=== PATIENT | female | born 1960 | race Hispanic/Latino ===

== ENCOUNTER 2023-02-11 14:43 | Outpatient (CLI) | payer OTHER, SELFPAY ==
--- NOTE | 2023-02-11 14:52 | ECHO_ITS ---
Patient Info Name: PETEY GRUBBS Age: 62 years : 1960 Gender: Female Ht: 62 in Wt: 225 lbs BSA: 2.17 m2 HR: 82 bpm BP: 156 / 85 mmHg Heart Rhythm: Sinus Rhythm Technical Quality: Good Exam Date: 02/11/2023 2:57 PM Exam Location: [facility] Patient Status: Outpatient Admit Date: 02/11/2023 Staff Ordering Physician: Derek Dubose DO Weight Engineer: Jarod Bonilla RDCS Attending Provider: Derek Dubose DO Referring Physician: Sedrick HOOPER; Exam Type: CA echo doppler color flow Study Info Indications - essential Hypertension Complete two-dimensional, color flow and Doppler transthoracic echocardiogram is performed. Summary 1. Complete two-dimensional, color flow and Doppler transthoracic echocardiogram is performed. 2. Left ventricular chamber dimension is normal. 3. Left ventricular systolic function is normal, estimated at 60-65%. 4. There is mild concentric increased left ventricular wall thickness. 5. The left ventricular diastolic function is grade I diastolic dysfunction. 6. E/e' 9 is minimally elevated. 7. Left atrial chamber dimension is mildly enlarged. 8. There is moderate aortic valve sclerosis. 9. There is mild aortic valve stenosis with a peak velocity of 233 cm/s, mean gradient of 14 mmHg, and aortic valve area of 1.8 cm2. 10. There is mild aortic valve regurgitation. 11. The mitral valve has mildly calcified annulus. 12. There is trace mitral valve regurgitation. 13. No pulmonary hypertension, estimated pulmonary arterial systolic pressure is 21 mmHg. 14. The aortic root size at the sinus of Valsalva is borderline dilated at 4.0 cm. Left Ventricle E/e' 9 is minimally elevated. Left ventricular chamber dimension is normal. Left ventricular systolic function is normal, estimated at 60-65%. There is mild concentric increased left ventricular wall thickness. The left ventricular diastolic function is grade I diastolic dysfunction. Right Ventricle Right ventricular systolic function is normal and with normal TAPSE 2.5 cm. Right ventricular chamber dimension is normal. Left Atria Left atrial chamber dimension is mildly enlarged. Right Atria Right atrial chamber dimension is normal. Aortic Valve The aortic valve is trileaflet. There is moderate aortic valve sclerosis. There is mild aortic valve stenosis with a peak velocity of 233 cm/s, mean gradient of 14 mmHg, and aortic valve area of 1.8 cm2. There is mild aortic valve regurgitation. Pulmonic Valve There is no pulmonic regurgitation. Mitral Valve The mitral valve has mildly calcified annulus. There is no mitral valve stenosis. There is trace mitral valve regurgitation. Tricuspid Valve There is no tricuspid valve regurgitation. No pulmonary hypertension, estimated pulmonary arterial systolic pressure is 21 mmHg. Pericardium/Pleural There is no pericardial effusion. Inferior Vena Cava Normal inferior vena cava with >50% collapse upon inspiration consistent with normal right atrial pressure, 5 mmHg. Aorta The aortic root size at the sinus of Valsalva is borderline dilated at 4.0 cm. Left Ventricular Outflow Tract Name Value Normal LVOT 2D LVOT Diameter 2.1 cm LVOT Doppler LVOT Peak Gradient
== END 2023-02-11 14:44 | disposition home or self-care (01) ==
LOC: ANHCARD 14:44
PROVIDERS: PCP Physician Assistant; Visit Provider Internal Medicine Cardiovascular Disease
DX: I51.7 Cardiomegaly (principal); R93.1 Abnormal findings on diagnostic imaging of heart and coronary circulation; I35.8 Other nonrheumatic aortic valve disorders; I35.1 Nonrheumatic aortic (valve) insufficiency; I34.81 Nonrheumatic mitral (valve) annulus calcification; I34.0 Nonrheumatic mitral (valve) insufficiency
CPT/HCPCS: 93306

== ENCOUNTER 2024-08-09 10:34 | Outpatient (CLI) | payer MEDICARE, SELFPAY ==
--- NOTE | ~2024-08-09 | XR_ITS ---
Left Knee Technique: AP, lateral, and sunrise views were obtained. Clinical History: Pain Findings: No fracture or dislocation is seen. Osseous alignment is anatomic. Joint spaces are preserv ed without degenerative or erosive change. Suspected small joint effusion is seen. Impression: Probable small joint effusion. Reviewed, dictated and finalized at [facility]. Impression: Probable small joint effusion.
--- OUTSIDE RECORDS SUMMARY | 2024-08-09 12:10 | XMS_ITS | Data Portability ---
Author Organization [facility] [place] Address [address] [facility] [place] [address] Care Team Providers Care Heel Room Supervisor Name Role Phone ELY ADAMSON Manager Math MORTEZA STEPHENSON Primary Care Provider [phone] Assessment Encounter Date Assessment Date Assessment LastModified by Organization Details LastModified Time 01/26/2024 01/26/2024 reminded to schedule pap Not available 01/26/2024 09:48:07 Plan of Treatment Reminders Order Date Submit Date Provider Last Modified By Organization Details Last Modified Time Details Appointments ANY 15 2024 09:30A M ENRIQUE ODEN Not available Not available Not available Lab CMP, serum or plasma 2023 024 [facility], [address], [place], [address], 01/27/2024 09:15:33 CBC w/ auto diff 2023 024 [facility], [address], [place], [address], 01/27/2024 09:15:36 lipid panel, serum 2023 024 [facility], [address], [place], [address], 01/27/2024 09:15:32 HbA1c (hemoglob in A1c), blood 2023 024 [facility], [address], [place], [address], 01/27/2024 09:15:35 TSH + free T4, serum 2023 [facility], [address], [place], [address], 01/27/2024 09:15:31 cytology report, thin prep, smear or scraping, cervical or vaginal 2022 023 [facility], [address], [place], [address], 03/20/2023 21:08:38 Referral podiatris t [facility] [place] [address], [address] [facility], [place], [address], 08/03/2023 16:03:57 Procedures None recorded. Surgeries None recorded. Imaging MAMMO, screening , bilateral 2022 023 [email or web address] [facility] [address] [place], [address], 04/14/2023 08:42:11 Medication Orders amlodipin e 10 mg tablet 2023 [facility], [address] [place] [address], [id number], 01/26/2024 13:13:32 losartan 50 mg-hydroc hlorothia zide 12.5 mg tablet 2023 [facility], [address] [place] [address], [id number], 01/26/2024 13:13:34 metoprolo l succinate ER 50 mg tablet,ex tended release 24 hr 2023 [facility], [address] [place] [address], [id number], 01/26/2024 13:13:32 sertralin e 50 mg tablet 2023 [employer] [facility], [address] [place], [id number], 01/26/2024 10:42:39 calcium 600 mg (as carbonate )-vitamin D3 10 mcg (400 unit) tablet 2023 [employer] [facility], [address] [place], [place], [id number], 01/26/2024 10:42:44 Patient TargetsNo targets recorded. Patient Instructions Encounter Date Encounter Id Patient Instructions Last Modified By Organization Details Last Modified Time 03/17/2023 [id number] visita de contro l para mujeres de 50 a 65 a os: instrucciones de cuidado - [well visit, women 50 to 65: care instructions] Not available 03/17/2023 10:32:35 aprenda acerca d e las pruebas de detecci n del c ncer de seno - [learning about breast cancer screening] Not available 03/17/2023 10:32:35 A healthy lifestyle: care instructions Not available 03/17/2023 10:32:35 01/26/2024 [id number] A healthy lifestyle: care instructions Not available 01/26/2024 09:48:45 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 A negat britni Colog uard resul t indic ates a low likel ihood that a color ectal cance r (CRC) or advan arsh adeno ma (jones omato us polyp s with more advan arsh pre-m align ant featu res) is prese nt. The [facility] e that a perso n with a negat britni Colog uard test has a color ectal cance r is less than 1 in 1500 (nega tive predi ctive value >99.9 %) or has an advan arsh adeno ma is less than 5.3% (nega tive predi ctive value 94.7% ). These data are based on a prosp ectiv e cross -sect ional study of ,00 0 indiv idual s at [facility] risk for color ectal cance r who were scree elli with both Colog uard and colon oscop y. (Ramone Servin. et al, N Engl J Med 2014; 370(1 4):12 86-12 97) The glenroy l value (refe rence range ) for this assay is negat britni. COLOG UARD RE-SC REENI NG RECOM MENDA TION: Perio dic color ectal cance r scree komal is an impor tant part of preve ntive healt hcare for asymp tomat ic indiv idual s at sebree ge risk for color ectal cance r. Follo wing a negat britni Colog uard resul t, the Ameri can Cance r Socie ty and U.S. Multi -Soci ety Task Force scree komal guide lines recom mend a Colog uard re-sc reechava ng inter rach of 3 years . Refer ences : Ameri can Cance r Socie ty Guide line for Color ectal Cance r Scree komal: https ://peter w.can cer.o rg/ca ncer/ colon -rect al-ca ncer/ detec tion- diagn osis- stagi ng/ac s-rec ommen datio ns.ht ml.; Thien SALDANA, Mark PARK, Santy LIM, Color ectal Cance r Scree komal: Recom menda tions for Physi cians and Patie nts from the U.S. Multi -Soci ety Task Force on Color ectal Cance r Scree komal , Am Gisele lara rolog y 2017; 112:1 016-1 030. TEST DESCR IPTIO N: [place] site algor ithmi c danii sis of stool DNA-b iomar kers with hemog lobin immun oassa y. Quant itati ve value s of indiv idual bioma rkers are not repor table and are not assoc iated with indiv idual bioma rker resul t refer ence range s. Colog uard is inten ded for color ectal cance r scree komal of adult s of eithe r sex, 45 years or older , who are at [facility] for color ectal cance r (CRC) . Colog uard has been appro angelica for use by the U.S. FDA. The perfo rmanc e of Colog uard was estab lishe d in a cross secti onal study of [facility] adult s aged 50-84 . Colog uard perfo rmanc e in patie nts ages 45 to 49 years was estim ated by sub-g roup danii sis of near- age group s. Colon oscop ies perfo rmed for a posit britni resul t may find as the most clini jr signi fican t lesio n: color ectal cance r [4.0% ], advan arsh adeno ma (incl uding sessi le nahed cammie polyp s great er than or equal to 1cm diame ter) [20%] or non- advan arsh adeno ma [31%] ; or no color ectal neopl saad [45%] . These estim ates are deriv ed from a prosp ectiv e cross -sect ional scree komal study of 10,00 0 indiv idual s at [facility] risk for color ectal cance r who were scree elli with both Colog uard and colon oscop y. (Ramone simpson T. et al, N Engl J Med 2014; 370(1 4):12 86-12 97.) Colog uard may produ ce a false negat britni or false posit britni resul t (no color ectal cance r or preca ncero us polyp prese nt at colon oscop y follo w up). A negat britni Colog uard test resul t does not guara ntee the absen ce of CRC or advan arsh adeno ma (pre- cance r). The curre nt Colog uard scree koaml inter rach is every 3 years . (Amdom kincaid Cance r Socie ty and U.S. Multi -Soci ety Task Force ). Colog uard perfo rmanc e data in a 10,00 0 patie nt pivot al study using colon oscop y as the refer ence metho d can be acces sed at the follo wing locat ion: www.e xactl abs.c om/re sults . Addit ional descr iptio n of the Colog uard test proce ss, warni ngs and preca ution s can be found at www.c ologu starla.c om. Not Available [employer] (Cologuard Orders Only) [address], [place], [address], 02/25/2023 17:55:48 03/17/20 23 03/19/2023 IGP, APTIM A HPV, RFX 16/18 ,45 diagnosis: Commen t NEGAT BRITNI FOR INTRA EPITH ELIAL LESIO N OR MASON TEJEDA . Not Available [facility] ([facility]) [address] [facility], [place], [address], 03/20/2023 21:08:38 03/17/20 23 03/19/2023 IGP, APTIM A HPV, RFX 16/18 ,45 specimen adequacy: Commen t Satis facto ry for evalu ation . Endoc ervic al and/o r squam ous metap lasti c cells (endo cervi fracnes compo nent) are prese nt. Not Available [facility] ([facility]) [address] [place], [address], 03/20/2023 21:08:38 03/17/20 23 03/19/2023 IGP, APTIM A HPV, RFX 16/18 ,45 clinician provided ICD10: Commen t Z01.4 19 Not Available [facility] ([facility]) [address] [place], [address], 03/20/2023 21:08:38 03/17/20 23 03/19/2023 IGP, APTIM A HPV, RFX 16/18 ,45 performed by: Francine oneil, Anthony servin (ASCP ) Not Available [facility] ([facility]) [address] [facility], [place], [address], 03/20/2023 21:08:38 03/17/20 23 03/19/2023 IGP, APTIM A HPV, RFX 16/18 ,45 . . Not Available [facility] ([facility]) [address] [facility], [place], [address], 03/20/2023 21:08:38 03/17/20 23 03/19/2023 IGP, APTIM A HPV, RFX 16/18 ,45 note: Francine servin The Pap smear is a scree komal test desfred calloway to aid in the detec tion of jus ligna nt and malig nant condi tions of the uteri ne cervi x. It is not a diagn ostic proce dure and shoul d not be used as the sole means of detec ting cervi frances cance r. Both false -posi tive and false -nega tive repor ts do occur . Not Available [facility] ([facility]) [address] [facility], [place], [address], 03/20/2023 21:08:38 03/17/20 23 03/19/2023 IGP, APTIM A HPV, RFX 16/18 ,45 test methodology: Francine servin This liqui d based ThinP rep(R ) pap test was scree elli with the use of an image guide isha roca Not Available [facility] ([facility]) [address] [place], [address], 03/20/2023 21:08:38 03/17/20 23 03/19/2023 IGP, APTIM A HPV, RFX 16/18 ,45 HPV aptima Positi ve negati ve abnormal This nucle ic acid ampli ficat ion test detec ts fourt een high- risk HPV types (16,1 8,31, 33,35 ,39,4 5,51, 52,56 ,58,5 9,66, 68) witho ut diffe renti ation . Not Available [facility] ([facility]) [address] [facility], [place], [address], 03/20/2023 21:08:38 03/17/20 23 03/19/2023 IGP, APTIM A HPV, RFX 16/18 ,45 HPV genotype reflex Commen t Crite leslee met, see HPV Genot ype resul ts. Not Available [facility] ([facility]) [address] [facility], [place], [address], 03/20/2023 21:08:38 03/17/20 23 03/20/2023 HPV GENOT YPES 16/18 ,45 HPV genotype 16 Negati ve negati ve Not Available [facility] ([facility]) [address] [facility], [place], [address], 03/20/2023 21:08:38 03/17/20 23 03/20/2023 HPV GENOT YPES 16/18 ,45 HPV genotype 18,45 Negati ve negati ve Not Available [facility] ([facility]) [address] [place], [address], 03/20/2023 21:08:38 01/26/20 24 01/27/2024 TSH+F REE T4 TSH 2.060 uIU/m L 0.450- 4.500 Not Available [facility] ([facility]) [address] [place], [address], 01/27/2024 09:15:31 01/26/20 24 01/27/2024 TSH+F REE T4 T4,free(dire ct) 0.93 NG/dL 0.82-1 .77 Not Available [facility] ([facility]) [address] [facility] [place], [address], 01/27/2024 09:15:31 01/26/2001/27/2024 LIPID PANEL cholesterol, total 174 mg/dL 100-19 9 Not Available [facility] ([facility]) [address] [facility] [place], [address], 01/27/2024 09:15:32 01/26/2001/27/2024 LIPID PANEL triglyceride s 289 mg/dL 0-149 above high normal Not Available [facility] ([facility]) [address] [facility] [place], [address], 01/27/2024 09:15:32 01/26/2001/27/2024 LIPID PANEL HDL cholesterol 44 mg/dL >39 Not Available [facility] ([facility]) [address] [place], [address], 01/27/2024 09:15:32 01/26/2001/27/2024 LIPID PANEL VLDL cholesterol frances 47 mg/dL 5-40 above high normal Not Available [facility] ([facility]) [address] [facility] [place], [address], 01/27/2024 09:15:32 01/26/20 24 01/27/2024 LIPID PANEL LDL chol calc ([facility]) 83 mg/dL 0-99 Not Available [facility] ([facility]) [address] [place], [address], 01/27/2024 09:15:32 01/26/20 24 01/27/2024 COMP. METAB OLIC PANEL (14) glucose 103 mg/dL 70-99 above high normal Not Available [facility] ([facility]) [address] [facility] [place], [address], 01/27/2024 09:15:33 01/26/20 24 01/27/2024 COMP. METAB OLIC PANEL (14) BUN 14 mg/dL 8-27 Not Available [facility] ([facility]) [address] [facility] [place], [address], 01/27/2024 09:15:33 01/26/20 24 01/27/2024 COMP. METAB OLIC PANEL (14) creatinine 0.61 mg/dL 0.57-1 .00 Not Available [facility] ([facility]) [address] [facility] [place], [address], 01/27/2024 09:15:33 01/26/20 24 01/27/2024 COMP. METAB OLIC PANEL (14) eGFR 100 mL/mi n/1.7 3 >59 Not Available [facility] ([facility]) [address] [facility] [place], [address], 01/27/2024 09:15:33 01/26/20 24 01/27/2024 COMP. METAB OLIC PANEL (14) BUN/creatini ne ratio 23 12-28 Not Available [facility] ([facility]) [address] [facility] [place], [address], 01/27/2024 09:15:33 01/26/20 24 01/27/2024 COMP. METAB OLIC PANEL (14) sodium 140 mmol/ L 134-14 4 Not Available [facility] ([facility]) [address] [facility] [place], [address], 01/27/2024 09:15:33 01/26/20 24 01/27/2024 COMP. METAB OLIC PANEL (14) potassium 3.9 mmol/ L 3.5-5. 2 Not Available [facility] ([facility]) [address] [facility] [place], [address], 01/27/2024 09:15:33 01/26/20 24 01/27/2024 COMP. METAB OLIC PANEL (14) chloride 103 mmol/ L 96-106 Not Available [facility] ([facility]) [address] [facility] [place], [address], 01/27/2024 09:15:33 01/26/20 24 01/27/2024 COMP. METAB OLIC PANEL (14) carbon dioxide, total 22 mmol/ L 20-29 Not Available [facility] ([facility]) [address] [facility] [place], [address], 01/27/2024 09:15:33 01/26/2001/27/2024 COMP. METAB OLIC PANEL (14) calcium 9.2 mg/dL 8.7-10 .3 Not Available [facility] ([facility]) [address] [facility] [place], [address], 01/27/2024 09:15:33 01/26/2001/27/2024 COMP. METAB OLIC PANEL (14) protein, total 7.2 g/dL 6.0-8. 5 Not Available [facility] ([facility]) [address] [facility] [place], [address], 01/27/2024 09:15:33 01/26/20 24 01/27/2024 COMP. METAB OLIC PANEL (14) albumin 4.4 g/dL 3.9-4. 9 Not Available [facility] ([facility]) [address] [facility], [place], [address], 01/27/2024 09:15:33 01/26/2001/27/2024 COMP. METAB OLIC PANEL (14) globulin, total 2.8 g/dL 1.5-4. 5 Not Available [facility] ([facility]) [address] [facility], [place], [address], 01/27/2024 09:15:33 01/26/2001/27/2024 COMP. METAB OLIC PANEL (14) bilirubin, total 0.3 mg/dL 0.0-1. 2 Not Available [facility] ([facility]) [address] [facility] [place], [address], 01/27/2024 09:15:33 01/26/20 24 01/27/2024 COMP. METAB OLIC PANEL (14) alkaline phosphatase 91 IU/L 44-121 Not Available [facility] ([facility]) [address] [facility], [place], [address], 01/27/2024 09:15:33 01/26/20 24 01/27/2024 COMP. METAB OLIC PANEL (14) AST (SGOT) 32 IU/L 0-40 Not Available [facility] ([facility]) [address] [facility], [place], [address], 01/27/2024 09:15:33 01/26/20 24 01/27/2024 COMP. METAB OLIC PANEL (14) ALT (SGPT) 30 IU/L 0-32 Not Available [facility] ([facility]) [address] [facility], [place], [address], 01/27/2024 09:15:33 01/26/20 24 01/27/2024 HEMOG LOBIN A1C hemoglobin A1C 6.0 % 4.8-5. 6 above high normal Predi abete s: 5.7 - 6.4 Diabe jerman: >6.4 Glyce christopher contr ol for adult s with diabe jerman: <7.0 Not Available [facility] ([facility]) [address] [facility], [place], [address], 01/27/2024 09:15:35 01/26/2001/27/2024 CBC WITH DIFFE RENTI AL/PL ATELE T WBC 4.9 x10e3 /uL 3.4-10 .8 Not Available [facility] ([facility]) [address] [place], [address], 01/27/2024 09:15:36 01/26/20 24 01/27/2024 CBC WITH DIFFE RENTI AL/PL ATELE T RBC 4.50 x10e6 /uL 3.77-5 .28 Not Available [facility] ([facility]) [address] [facility], [place], [address], 01/27/2024 09:15:36 01/26/2001/27/2024 CBC WITH DIFFE RENTI AL/PL ATELE T hemoglobin 14.0 g/dL 11.1-1 5.9 Not Available [facility] ([facility]) [address] [facility], [place], [address], 01/27/2024 09:15:36 01/26/2001/27/2024 CBC WITH DIFFE RENTI AL/PL ATELE T hematocrit 42.2 % 34.0-4 6.6 Not Available [facility] ([facility]) [address] [facility], [place], [address], 01/27/2024 09:15:36 01/26/2001/27/2024 CBC WITH DIFFE RENTI AL/PL ATELE T MCV 94 fL 79-97 Not Available [facility] ([facility]) [address] [facility], [place], [address], 01/27/2024 09:15:36 01/26/2001/27/2024 CBC WITH DIFFE RENTI AL/PL ATELE T MCH 31.1 pg 26.6-3 3.0 Not Available [facility] ([facility]) [address] [place], [address], 01/27/2024 09:15:36 01/26/2001/27/2024 CBC WITH DIFFE RENTI AL/PL ATELE T MCHC 33.2 g/dL 31.5-3 5.7 Not Available [facility] ([facility]) [address] [place], [address], 01/27/2024 09:15:36 01/26/2001/27/2024 CBC WITH DIFFE RENTI AL/PL ATELE T RDW 12.7 % 11.7-1 5.4 Not Available [facility] ([facility]) [address] [place], [address], 01/27/2024 09:15:36 01/26/20 24 01/27/2024 CBC WITH DIFFE RENTI AL/PL ATELE T platelets 257 x10e3 /uL 150-45 0 Not Available [facility] ([facility]) [address] [facility], [place], [address], 01/27/2024 09:15:36 01/26/20 24 01/27/2024 CBC WITH DIFFE RENTI AL/PL ATELE T neutrophils 57 % notest ab. Not Available [facility] ([facility]) [address] [facility], [place], [address], 01/27/2024 09:15:36 01/26/20 24 01/27/2024 CBC WITH DIFFE RENTI AL/PL ATELE T lymphs 33 % notest ab. Not Available [facility] ([facility]) [address] [facility], [place], [address], 01/27/2024 09:15:36 01/26/20 24 01/27/2024 CBC WITH DIFFE RENTI AL/PL ATELE T monocytes 8 % notest ab. Not Available [facility] ([facility]) [address] [facility], [place], [address], 01/27/2024 09:15:36 01/26/20 24 01/27/2024 CBC WITH DIFFE RENTI AL/PL ATELE T eos 2 % notest ab. Not Available [facility] ([facility]) [address] [facility], [place], [address], 01/27/2024 09:15:36 01/26/20 24 01/27/2024 CBC WITH DIFFE RENTI AL/PL ATELE T basos 0 % notest ab. Not Available [facility] ([facility]) [address] [facility], [place], [address], 01/27/2024 09:15:36 01/26/20 24 01/27/2024 CBC WITH DIFFE RENTI AL/PL ATELE T neutrophils (absolute) 2.8 x10e3 /uL 1.4-7. 0 Not Available [facility] ([facility]) [address] [facility], [place], [address], 01/27/2024 09:15:36 01/26/20 24 01/27/2024 CBC WITH DIFFE RENTI AL/PL ATELE T lymphs (absolute) 1.6 x10e3 /uL 0.7-3. 1 Not Available [facility] ([facility]) [address] [facility], [place], [address], 01/27/2024 09:15:36 01/26/20 24 01/27/2024 CBC WITH DIFFE RENTI AL/PL ATELE T monocytes(ab solute) 0.4 x10e3 /uL 0.1-0. 9 Not Available [facility] ([facility]) [address] [facility], [place], [address], 01/27/2024 09:15:36 01/26/20 24 01/27/2024 CBC WITH DIFFE RENTI AL/PL ATELE T eos (absolute) 0.1 x10e3 /uL 0.0-0. 4 Not Available [facility] ([facility]) [address] [facility], [place], [address], 01/27/2024 09:15:36 01/26/20 24 01/27/2024 CBC WITH DIFFE RENTI AL/PL ATELE T baso (absolute) 0.0 x10e3 /uL 0.0-0. 2 Not Available [facility] ([facility]) [address] [place], [address], 01/27/2024 09:15:36 01/26/20 24 01/27/2024 CBC WITH DIFFE RENTI AL/PL ATELE T immature granulocytes 0 % notest ab. Not Available [facility] ([facility]) [address] [place], [address], 01/27/2024 09:15:36 01/26/20 24 01/27/2024 CBC WITH DIFFE RENTI AL/PL ATELE T immature grans (abs) 0.0 x10e3 /uL 0.0-0. 1 Not Available [facility] ([facility]) [address], [place], [address], 01/27/2024 09:15:36 02/12/20 23 02/11/2023 trans -thor acic echoc ardio gram (TTE) (PROC ) No observ ation record ed. [address], [place], [address], 02/12/2023 13:24:21 05/29/19 24 04/03/2023 MAMMO , scree komal, bilat eral No observ ation record ed. [facility] ([facility] [address] [place], [address], 05/29/2023 16:30:18 04/10/20 24 04/10/2024 XR, chest No observ ation record ed. [address] [place], [address], 04/11/2024 13:46:38 04/10/20 24 04/10/2024 CT, head + brain , w/o contr ast No observ ation record ed. [address] [place], [address], 04/11/2024 13:46:39 08/10/19 25 08/09/2024 XR, knee, 3 view No observ ation record ed. [place] [id number] [facility] [address], [place], [address], 08/09/2024 12:29:34 08/10/19 25 08/09/2024 XR, knee, 3 view No observ ation record ed. [facility] [address], [place], [address], 08/09/2024 12:53:20 Result Notes None recorded. Problems Name Problem SNOMED Code Status Onset Date Resolution Date Notes Provider Name and Address Organization Details Recorded Time Essential hypertension 50777537 Active 2019 ENRIQUE ODEN Attn: Accountin g,[address] [facility], [place], [address], [place] [facility] 0 15:52:41 Hypertriglycer idemia 984404562 Active 2019 ENRIQUE ODEN Attn: Accountin g,[address] 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, [place], [address], [place] [facility] 0 16:06:00 Osteopenia 517234456 Active 2019 ENRIQUE VERA Attn: Accountin g,[address] [facility], [place], [address], [place] [facility] 0 16:21:53 Cataract 402787054 Active 2020 ENRIQUE ODEN Attn: Accountin g,[address] [facility], [place], [address], [place] [facility] 1 11:39:37 Morbid obesity 558350779 Active 2021 ENRIQUE ODEN Attn: Accountin g,[address] [facility], [place], [address], [place] [facility] 2 12:22:47 Depressive disorder 50721259 Active 2021 ENRIQUE ODEN Attn: Accountin g,[address] [facility], [place], [address], [place] [facility] 2 12:22:50 Heart murmur 08334428 Active 2022 ENRIQUE ODEN Attn: Accountstacie bennett,[address] [facility], [place], [address], [place] [facility] 3 12:21:36 Lumbago with sciatica 402484368 Active 2022 ENRIQUE ODEN Attn: Accountstacie g,[address] [place], [address], [place] [facility] 3 14:24:24 Right inguinal hernia 655386376 Active 2022 ENRIQUE ODEN Attn: Accountstacie bennett,[address] [place], [address], [place] [facility] 3 14:24:25 Female stress incontinence 74849834 Active 2022 ENRIQUE ODEN Attn: Accountstacie bennett,[address] [place], [address], [place] [facility] 3 12:23:21 Acute urinary tract infection 296096054 Active 2022 ENRIQUE ODEN Attn: Accountstacie bennett,[address] [place], [address], [place] [facility] 3 16:18:11 Hallux valgus 095927278 Active 2023 ENRIQUE ODEN Attn: Accountstacie bennett,[address] [place], [address], [place] [facility] 4 15:54:37 Foot callus 195236044 Active 2023 ENRIQUE ODEN Attn: Accountstacie g,[address] [place], [address], [place] [facility] 4 16:53:57 Problem Notes None recorded. Procedures Surgical History Date Name Laterality Status Provider Name and Address Organization Details Recorded Time 1 Colposcopy completed ENRIQUE WHITTEN Attn: Accounting[address] [place], [address], [facility] 09/26/2020 12:13:15 9 Date of Last Pap Smear completed Tesha Dempsey MA [facility] 03/21/2020 10:25:21 Removal of fallopian tube completed Lizbeth Quiles MA [facility] 07/21/2019 11:03:44 Imaging Results Imaging Date Name Status LastModified by Organization Details LastModified Time 02/11/2023 trans-thoracic echocardiogram (TTE) (PROC) completed [address], [address], 02/12/2023 13:24:21 04/03/2023 MAMMO, screening, bilateral completed [facility] ([facility]) [address] [place] [address], [address], 05/29/2023 16:30:18 04/10/2024 XR, chest completed [address] [place], [address], 04/11/2024 13:46:38 04/10/2024 CT, head + brain, w/o contrast completed [address] [place], [address], 04/11/2024 13:46:39 08/09/2024 XR, knee, 3 view active [address], [address], 08/09/2024 12:29:34 08/09/2024 XR, knee, 3 view active [address], [address], 08/09/2024 12:53:20 Procedure Notes None recorded. Medical Equipment None Reported. Allergies No known drug allergies Medications Name Sig Start Date Stop Date Status Note LastModified by Organization Details LastModified Time amoxicillin 500 mg capsule Take 1 capsule every 8 hours by oral route. 01/09 completed Not Available Not Available Not Available cetirizine 10 mg tablet TAKE 1 TABLET BY MOUTH EVERY DAY FOR 30 DAYS 01/25 completed Not Available Not Available Not Available lisinopril 20 mg-hydrochl orothiazide 12.5 mg tablet TAKE TWO TABLETS BY MOUTH EVERY DAY 02/02 completed Not Available Not Available Not Available azithromyci n 250 mg tablet 08/09 completed Not Available Not Available Not Available ibuprofen 800 mg tablet active Not Available Not Available Not Available benzonatate 200 mg capsule 02/02 completed Not Available Not Available Not Available metoprolol succinate ER 50 mg tablet,exte nded release 24 hr Take 1 tablet every day by oral route for 90 days. 2024 active Not Available Not Available Not Avai lable Claritin 10 mg tablet Take 1 tablet every day by oral route. 01/25 completed Not Available Not Available Not Available lisinopril 20 mg tablet Take 1 tablet every day by oral route. 01/09 completed Not Available Not Available Not Available prednisone 20 mg tablet TAKE TWO TABLETS BY MOUTH EVERY DAY 01/25 completed Not Available Not Available Not Available amoxicillin 875 mg tablet Take 1 tablet every 12 hours by oral route. 10/04 completed Not Available Not Available Not Available amlodipine 10 mg tablet Take 1 tablet every day by oral route for 30 days. 2024 active Not Available Not Available Not Avai lable benzonatate 100 mg capsule TAKE ONE CAPSULE BY MOUTH THREE TIMES DAILY NEEDED FOR 5 DAYS 02/02 completed Not Available Not Available Not Available hydroxyzine HCl 25 mg tablet 02/25 completed Not Available Not Available Not Available metoprolol succinate ER 25 mg tablet,exte nded release 24 hr TAKE ONE TABLET BY MOUTH EVERY DAY FOR BLOOD PRESSURE 07/07 completed Not Available Not Available Not Available albuterol sulfate HFA 90 mcg/actuati on aerosol inhaler INHALE 2 PUFFS BY MOUTH EVERY 4-6 HOURS NEEDED FOR BREATHING 01/25 completed Not Available Not Available Not Available Vitamin D2 1,250 mcg (50,000 unit) capsule Take 1 capsule every week by oral route. 01/25 completed Not Available Not Available Not Available losartan 50 mg-hydrochl orothiazide 12.5 mg tablet TAKE 1 TABLET BY MOUTH EVERY DAY FOR BLOOD PRESSURE AND FLUID RETENTION active Not Available Not Available No t Available fluticasone propionate 50 mcg/actuati on nasal spray,suspe nsion [place] 1 spray every day by intranasa l route. active Not Available Not Available No t Available sertraline 50 mg tablet Take 1 tablet every day by oral route for 30 days. 2023 active Not Available Not Available Not Avai lable amoxicillin 875 mg-potassiu m clavulanate 125 mg tablet TAKE ONE TABLET BY MOUTH TWICE DAILY 08/09 completed Not Available Not Available Not Available amoxicillin 500 mg-potassiu m clavulanate 125 mg tablet TAKE ONE TABLET BY MOUTH EVERY TWELVE HOURS FOR 10 DAYS 01/25 completed Not Available Not Available Not Available nitrofurant oin monohydrate /macrocryst als 100 mg capsule 09/26 completed Not Available Not Available Not Available losartan 100 mg-hydrochl orothiazide 12.5 mg tablet Take 1 tablet every day by oral route for 90 days. 2024 active Not Available Not Available Not Avai lable calcium 600 mg (as carbonate)- vitamin D3 10 mcg (400 unit) tablet Take 1 tablet twice a day by oral route for 30 days. 2023 active Not Available Not Available Not Avai lable Victoza 2-Norman 0.6 mg/0.1 mL (18 mg/3 mL) subcutaneou s pen injector INJECT 1.2 MG UNDER THE SKIN EVERY DAY 05/08 completed Not Available Not Available Not Available TRUEplus Pen Needle 32 gauge x 5/32 INJECT EVERY DAY 06/09 completed Not Available Not Available Not Available Ozempic 0.25 mg or 0.5 mg (2 mg/1.5 mL) subcutaneou s pen injector INJECT 0.25mg UNDER THE SKIN EVERY WEEK FOR DIABETES 06/09 completed Not Available Not Available Not Available Vitals Date Recorded Body height Body mass index (BMI) Body weight Heart rate Oxygen saturation Oxygen saturation in Arterial blood by Pulse oximetry Systolic blood pressure Diastolic blood pressure Provider Name and Address Organization Details Last Updated DateTime 3 157.48 cm 42.4 kg/m2 483126. 43 g 69 /min 98 % 98 % 146 mm[Hg] 90 mm[Hg] Lizbeth Quiles MA [facility] 3 10:18:09 Date Recorded Body height Body mass index (BMI) Body weight Heart rate Provider Name and Address Organization Details Last Updated DateTime 08/03/2023 157.48 cm 43.3 kg/m2 246148.39 g 74 /min Lizbeth Quiles MA [facility] 08/03/2023 15:19:38 Date Recorded Oxygen saturation Oxygen saturation in Arterial blood by Pulse oximetry Systolic blood pressure Diastolic blood pressure Provider Name and Address Organization Details Last Updated DateTime 08/03/2023 98 % 98 % 156 mm[Hg] 77 mm[Hg] ENRIQUE ODEN Attn: Accountin g[address] [place], [address], [facility] 4 16:51:53 Date Recorded Body height Body mass index (BMI) Body weight Heart rate Oxygen saturation Oxygen saturation in Arterial blood by Pulse oximetry Provider Name and Address Organization Details Last Updated DateTime 4 157.48 cm 43.5 kg/m2 774619. 98 g 67 /min 97 % 97 % Lizbeth Quiles MA [facility] 09:12:17 Date Recorded Systolic blood pressure Diastolic blood pressure Provider Name and Address Organization Details Last Updated DateTime 01/26/2024 139 mm[Hg] 80 mm[Hg] ENRIQUE ODEN Attn: Accounting, [place], [address], [facility] 01/26/2024 09:48:35 Date Recorded Body height Body mass index (BMI) Body weight Heart rate Oxygen saturation Oxygen saturation in Arterial blood by Pulse oximetry Systolic blood pressure Diastolic blood pressure Provider Name and Address Organization Details Last Updated DateTime 5 157.48 cm 44.3 kg/m2 894472. 75 g 51 /min 97 % 97 % 168 mm[Hg] 84 mm[Hg] MARTINA Fox [facility] 5 10:05:10 Social History Question Answer Notes LastModified by Organizat ion Details LastModified Time Tobacco Smoking Status Current Some Day Smoker has cut back. Lizbeth Quiles MA null, [facility] 09/10/2022 11:46:53 Do You Have An Advance Directive? No [email or web address] Information not available 09/04/2021 What Is Your Level Of Alcohol Consumption? None Information not available 02/12/2021 Is Blood Transfusion Acceptable In An Emergency? Yes Information not available 03/21/2020 What Is Your Level Of Caffeine Consumption? Moderate Information not available 03/21/2020 In The 14 Days Before Symptom Onset, Have You Had Close Contact With A Laboratory-confir med COVID-19 While That Case Was Ill? No Information not available 10/10/2020 In The 14 Days Before Symptom Onset, Have You Had Close Contact With A Person Who Is Under Investigation For COVID-19 While That Person Was Ill? No Information not available 10/10/2020 Have You Been To An Area Known To Be High Risk For COVID-19? No Information not available 10/10/2020 Are You Currently Employed? No Information not available 03/21/2020 What Type Of Diet Are You Following? REGULAR Information not available 03/21/2020 Which Illicit Or Recreational Drugs Have You Used? 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 With Others Information not available 03/21/2020 What Was The Date Of Your Most Recent Tobacco Screening? 08/09/2024 Information not available 08/09/2024 How Many Children Do You Have? 4 Information not available 03/21/2020 Performs Monthly Self-breast Exam? Yes Information no t available 03/21/2020 Do You Use Protection During Sex? No Information not available 03/21/2020 What Is Your Relationship Status? Information not available 03/21/2020 Seat Belts Used Routinely Yes Information not available 03/21/2020 Are You Sexually Active? Yes Information not available 03/21/2020 Do You Have Smoke And Carbon Monoxide Detectors In Your Home? Yes Information not available 09/11/2020 Are You Passively Exposed To Smoke? No Information no t available 09/11/2020 How Much Tobacco Do You Smoke? 1 PPW Information not available 10/10/2020 General Stress Level Low Information not available 03/21/2020 Do You Use Any Illicit Or Recreational Drugs? No Information not available 09/11/2020 Do You Use Sunscreen Routinely? No Information not available 03/21/2020 Has Tobacco Cessation Counseling Been Provided? No Information not available 09/11/2020 On What Date Was Tobacco Cessation Counseling Provided? 08/09/2024 Information not available 08/09/2024 How Many Years Have You Smoked Tobacco? 47 [email or web address] Information not available 07/19/2018 Do You Or Have You Ever Used Any Other Forms Of Tobacco Or Nicotine? Yes Information not available 01/26/2024 Sex: Female Functional Status Question Answer Note LastModified by Organization D etails LastModified Time What is your exercise level? Moderate Information not available 03/21/2020 Mental Status None recorded. Family History Relationship Description Onset Age of this Age Resolved Age Notes LastModified by Organization Details LastModified Time Mother Alcohol abuse [email or web address] Not available 04/2018 15:52:35 Daughter Alcohol abuse [email or web address] Not available 04/2018 15:52:35 Father Alcohol abuse [email or web address] Not available 04/2018 15:52:35 Medical History Condition Response Coronary Artery Disease N Other N Atrial Fibrillation N High Blood Pressure N Depression N COPD N Blood Clots N Anxiety Disorder N Muscle, Joint, or Bone Problems N Acid Reflux (GERD) N Cancer N Stroke N ADHD N High Cholesterol N Liver Disease N Schizophrenia N Headaches N Thyroid Problems N Kidney or Bladder Problems N GI Problems N Eating Disorder N Skin Problems N Anemia N Heart Attack (IA) N Diabetes N Seizures/Epilepsy N Asthma N Allergies N Substance Abuse N Hepatitis N Heart Failure N Osteoporosis N Gynecological History Statement/Question Response If Post Menopausal, Age at Menopause Date of Last Pap Smear 02/04/2019 Current Control Method Menopause Obstetrics History GPAL:G 4 P 0 0 0 4 Type Value Living 4 Total 4 Immunizations Vaccine Type Date Status Note Provider Nam e and Address Organization Details Recorded Time COVID-19, mRNA, LNP-S, PF, 30 mcg/0.3 mL dose 1 completed MARTINA [place], [place] - [facility] 09/26/2020 12:48:41 COVID-19, mRNA, LNP-S, PF, 30 mcg/0.3 mL dose 1 [place] MARTINA [place] [facility] 09/26/2020 12:49:07 Influenza, split virus, quadrivalent, preservative 9 completed Not Available [facility] 05/07/2019 02:41:59 Influenza, split virus, quadrivalent, PF 1 [place] MARTINA [place], [place] [facility] 02/12/2021 17:17:22 Influenza, split virus, quadrivalent, PF 2 [place] [facility] 02/06/2022 10:25:23 Tdap 2 completed ENRIQUE ODEN Attn: Accounting[address] [place], [address], [place] [facility] 03/03/2022 09:50:13 Influenza, split virus, quadrivalent, preservative 3 completed MARTINA [place] [facility] 02/06/2023 08:59:50 Influenza, split virus, trivalent, PF 4 completed ENRIQUE ODEN Attn: Accounting[address] [place], [address], [place] [facility] 01/26/2024 09:47:17 Past Encounters Encounter ID Performer Location Encounter Start Date Encounter Closed Date Diagnosis/Indication Diagnosis SNOMED-CT Code Diagnosis ICD10 Code Diagnosis Note [id number] Diana Zhang MD [facility] [address] [place] [address] 07/19/2018 15:06:48 07/26/2018 08:26:26 Acute bilateral otitis media 286789483 H66.93 Acute sinusitis 48545936 J01.90 patient was encouraged to quit smoking. Neck pain 99447901 M54.2 Shoulder pain 54085036 M 25.519 right shoulder pain after fall in home. Essential hypertension 45933274 I10 Patient advised to limit salt and caffeine intake to maintain good blood pressure. Screening mammography 24 793919 Z12.31 Acute pharyngitis 446114 003 J02.9 Chicken soup, orange juice, popsicles, snow cones, slurpees, ice cream, tea with honey and lemon, hot lemonade, gatorade, and yogurt may make you feel better. [id number] Diana Zhang MD [facility] [address] [place] [address] 10/04/2018 10:22:51 10/11/2018 10:22:03 Essential hypertension 00555816 I10 Patient advised to limit salt and caffeine intake to maintain good blood pressure. Dental abscess 173235217 K04.7 Screening for malignant neoplasm of colon 068900552 Z12.11 [id number] Diana Zhang MD [facility] [address] [facility] [place] [address] 01/04/2019 10:14:32 01/10/2019 10:00:24 Essential hypertension 53752843 I10 Patient advised to limit salt and caffeine intake to maintain good blood pressure. Allergic rhinitis 142591 04 J30.9 [id number] Diana Zhang MD [facility] [address] [place] [address] 01/26/2019 10:59:50 01/31/2019 10:18:27 Right upper quadrant pain 606539709 R10.11 suspect gallblader or pancreas problems. Administra tion of influenza vaccine 47066368 Z23 risks and benefits of immunizati ons reviewed, and patient agreed to receive shot Adult [facility] examination 960471379 Z00.00 [id number] Aster Lawler MA [facility] [address] [place] [address] 02/01/2019 09:40:11 02/03/2019 09:51:07 [id number] Diana Zhang MD [facility] [address] [facility] [place] [address] 02/04/2019 10:32:20 02/08/2019 08:06:28 Routine gynecologic examination done 5110144867 9101 Z01.419 Abdominal pain 08188581 R10.9 Patient will go to ED if her symptoms become worse. [id number] Diana Zhang MD [facility] [address] [place] [address] 07/21/2019 09:15:36 07/25/2019 11:41:12 Hyperlipidemia 96653644 E78.5 Hyperglycemia 30957550 R 73.9 Essential hypertension 11580152 I10 Patient advised to limit salt and caffeine intake to maintain good blood pressure. Vitamin D deficiency 347 [address] E55.9 Screening mammography 24 668573 Z12.31 Adult heal th examination 352805808 Z00.00 [id number] SABINO SESAY [address] [place] [address] 10/06/2019 11:04:03 10/07/2019 09:51:36 Exposure to SARS-CoV-2 618672583 Z20.353 [id number] ENRIQUE ODEN [facility] [address] [place] [address] 02/16/2020 09:29:57 02/17/2020 08:50:03 Essential hypertension 95313376 I10 Patient not checking BP regularly but states a few weeks ago it was normal. She denies cp, sob, LE swelling.A dvised to check BP regularly with a goal of <140/90, if BP consistent ly >140/90, advised to contact clinic Discussed DASH diet Advised weight loss and diet is best way to control BP Advised 30 minutes of exercise minimum daily Advised tobacco, alcohol, caffeine all increase BP Advised goal for BP is <140/90 Abnormal c ervical Papanicolaou smear 728018850 R87.619 high risk HPV positive and was unaware. needs colposcopy . Patient advised to f/u with obgyn. Given number to call [place] as [place]. Seasonal a llergic rhinitis 644583548 J30.2 post nasal drip [id number] ENRIQUE WHITTEN (COSTUME RENTAL CLERK) [address] [place] [address] 03/21/2020 10:06:35 03/24/2020 19:12:14 Gynecologic examination 84123054 Z01.419 59yo postmenopa usal HF presents for annual wwe.-clini frances breast & pelvic examinatio ns completed today, unremarkab le -cervical cancer screening: last Pap 02/04/2019 , negative HPV+. Repeated today. -referral for screening mammogram issued for routine breast cancer screening -routine nuswab completed, treat as needed -Educated osteoporos is prevention including calcium rich diet, weight bearing exercise. Will start supplement . DEXA ordered. -RTC in 1yr Venereal d isease screening 830578167 Z11.3 Screening for malignant neoplasm of breast 927654507 Z12.31 Last mammogram unknown. Screening mammogram ordered, advised to schedule. Screening for osteoporosis 813277098 Z13.820 Menopause around age 44, smoker. F/u bone density scan. Start Ca/VitD supplement as above. Smoker 05650523 F17.200 Occasional light smoker, cessation encouraged . Body mass index 40+ - severely obese 395505977 Z68.41 BMI 40.8. Diet high in fruits and vegetables . Limit fat, sugar, and processed foods. Exercise at least 30 minutes 5x/week. Screening for malignant neoplasm of colon 723492219 Z12.11 Colonoscop y ~25 years ago per patient. Referral for screening. Hernia of anterior abdominal wall 510962761 K43.9 Bulge in R groin with valsalva. Reducible. Causing pt pain, especially when lifting. Referral to general surgery for further evaluation and management . Essential hypertension 02685348 I10 On lisinopril -HCTZ. BP elevated in office at 154/84. Advised exercise and low salt diet. ER precaution s discussed. F/u with PCP. 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 Examinatio n normal. ECC collected. Will contact patient with results. Instructed patient to return for Pap in 6-12 months. Pruritus of scalp 743135 005 L29.8 Sent prescripti on for loratidine . Recommende d changing hair care products. [id number] ENRIQUE ODEN [facility] [address] [place] [address] 10/10/2020 09:57:24 10/11/2020 07:28:19 Osteopenia 324172447 M85.80 Essential hypertension 13546146 I10 Patient not checking BP regularly but states a few weeks ago it was normal. She denies cp, sob, LE swelling. fasting labs today Advised to check BP regularly with a goal of <140/90, if BP consistent ly >140/90, advised to contact clinic Discussed DASH diet Advised weight loss and diet is best way to control BP Advised 30 minutes of exercise minimum daily Advised tobacco, alcohol, caffeine all increase BP Advised goal for BP is <140/90 Morbid obesity 975871912 E66.01 BMI 42.8. Patient not following healthy diet. States her mother and aunts are all big boned and she just won't be able to lose weight. - encouraged healthy diet- increase water and stop juices- encouraged walking 30 min fast paced 5x week Adult heal th examination 981974378 Z00.00 Patient presents for physical today. BP elevated due to not taking BP medication this morning. States runs normal at home. UTD on mammogram. - come by office this week for BP check- advised weight loss- discussed diet- discussed exercise [id number] ENRIQUE ODEN [facility] [address] [place] [address] 02/12/2021 15:40:43 02/13/2021 11:16:20 Adult health examination 769779964 Z00.00 Patient presents for physical today. BP elevated due to not taking BP medication this morning. States runs normal at home. - come by office this week for BP check- advised weight loss- discussed diet- discussed exercise Essential hypertension 92269536 I10 Patient ran out of BP medication and did not reach out for refills. not checking BP regularly but states a few weeks ago it was normal. She denies cp, sob, LE swelling. New murmur on exam today. fasting labs today Advised to check BP regularly with a goal of <140/90, if BP consistent ly >140/90, advised to contact clinic Discussed DASH diet Advised weight loss and diet is best way to control BP Advised 30 minutes of exercise minimum daily Advised tobacco, alcohol, caffeine all increase BP Advised goal for BP is <140/90 Morbid obesity 940566643 E66.01 BMI 43. Patient not following healthy diet. States her mother and aunts are all big boned and she just won't be able to lose weight. - encouraged healthy diet- increase water and stop juices- encouraged walking 30 min fast paced 5x week Osteopenia 741077629 M85 .80 Heart murmur 61605112 R0 1.1 new murmur on exam with history of uncontroll ed htn. [id number] ENRIQUE ODEN [facility] [address] [place] [address] 09/04/2021 10:02:56 09/11/2021 08:59:52 Gynecologic examination 22928021 Z01.419 61yo postmenopa usal HF presents for annual wwe. -clinical breast & pelvic examinatio ns completed today, unremarkab le -cervical cancer screening: last Pap 02/05/2020 , negative HPV+. colposcopy 09/11/20 showing HPV changes .obtained repeat pap today -referral for screening mammogram issued for routine breast cancer screening -routine nuswab completed, treat as needed -Educated osteoporos is prevention including calcium rich diet, weight bearing exercise. continue vit D and calcium -RTC in 1yr Screening for malignant neoplasm of breast 623101560 Z12.31 Last mammogram unknown. Screening mammogram ordered, advised to schedule. Essential hypertension 62005516 I10 On lisinopril -HCTZ. BP elevated in office at 150/92. Advised exercise and low salt diet. ER precaution s discussed. re-start medication and f/u for BP Depressive disorder 9037 0167 F32.A c/o depressed mood, low energy, unable to sleep, crying episodes. Having trouble with but denies any physical abuse. Patient would like to start medication . - advised counseling -Patient was educated on his prescribed medication s, rationale for medication s, dosing indication s, adverse reactions, black box warning, dosing indication s, SE (e.g., decreased libido, weight gain, gynecomast ia, and galactorrh ea) and the risks and benefits.- Call center with questions/ concerns. Go to ER or call 911 for crisis (e.g., suicidal behaviors, suicidal ideations, intent or plan emerge). Additional ly, patient has suicide hotline #[phone].- f/u one month- call with questions Morbid obesity 320047533 E66.01 BMI 43. Patient not following healthy diet. States her mother and aunts are all big boned and she just won't be able to lose weight. - encouraged healthy diet- increase water and stop juices- encouraged walking 30 min fast paced 5x week Osteopenia 168163509 M85 .80 osteopenia : dexa shows osteopenia 2019. repeat age 64 and continue vitd/calci [id number] ENRIQUE ODEN [facility] [address] [place] [address] 02/25/2022 13:32:59 03/03/2022 12:28:37 Depressive disorder 81254160 F32.A c/o depressed mood, low energy, unable to sleep, crying episodes. Having trouble with but denies any physical abuse. Patient would like to start medication . - advised counseling -Patient was educated on his prescribed medication s, rationale for medication s, dosing indication s, adverse reactions, black box warning, dosing indication s, SE (e.g., decreased libido, weight gain, gynecomast ia, and galactorrh ea) and the risks and benefits.- Call center with questions/ concerns. Go to ER or call 911 for crisis (e.g., suicidal behaviors, suicidal ideations, intent or plan emerge). Additional ly, patient has suicide hotline #.- f/u one month- call with questions Prediabetes [id number] R7 3.03 5.8 02/2022 Essential hypertension 11179733 I10 On lisinopril -HCTZ. BP elevated in office at 172/90. adding on amlodipine 10mg to lisinopril -hcz. Advised to check BP regularly with a goal of <140/90, if BP consistent ly >140/90, advised to contact clinic Discussed DASH diet Advised weight loss and diet is best way to control BP Advised 30 minutes of exercise minimum daily Advised tobacco, alcohol, caffeine all increase BP Morbid obesity [id number] E66.01 BMI 41.5. Patient not following healthy diet. States her mother and aunts are all big boned and she just won't be able to lose weight. - encouraged healthy diet- increase water and stop juices- encouraged walking 30 min fast paced 5x week Administra tion of diphtheria, pertussis, and tetanus vaccine [id number] Z23 Screening for malignant neoplasm of colon [id number] Z12.11 [id number] Lizbeth Quiles MA [facility] [address] [place] [address] 02/27/2022 09:10:05 03/03/2022 12:39:47 [id number] ENRIQUE ODEN [facility] [address] [place] [address] 04/07/2022 09:53:23 04/08/2022 16:03:43 Depressive disorder [id number] F32.A controlled . refill - advised counseling -Patient was educated on his prescribed medication s, rationale for medication s, dosing indication s, adverse reactions, black box warning, dosing indication s, SE (e.g., decreased libido, weight gain, gynecomast ia, and galactorrh ea) and the risks and benefits.- Call center with questions/ concerns. Go to ER or call 911 for crisis (e.g., suicidal behaviors, suicidal ideations, intent or plan emerge). Additional ly, patient has suicide hotline #.- f/u one month- call with questions Essential hypertension [id number] I10 BP not controlled today. did take medication this morning. On lisinopril -HCTZ and amlodipine 10mg. increase to TWO lisinopril -hcz. check bp this week and f/u. starting GLP-1 for weight loss and CV improvemen t. Advised to check BP regularly with a goal of <140/90, if BP consistent ly >140/90, advised to contact clinicDisc ussed DASH dietAdvise d weight loss and diet is best way to control BPAdvised 30 minutes of exercise minimum dailyAdvis ed tobacco, alcohol, caffeine all increase BP Morbid obesity 137002947 E66.01 BMI 41, 3 lb weight loss since last visit. . Patient not following healthy diet. States her mother and aunts are all big boned and she just won't be able to lose weight. She does agree to GLP. she is morbidly obese, pre-diabet ic and hypertensi ve on 3 medication regiment. weight loss will be beneficial . She denies contraindi cations to start such as pancreatit is and hx of thyroid cancer. - discussed how to inject GLP1, side effects, when to go to ER or contact office- encouraged healthy diet- increase water and stop juices- encouraged walking 30 min fast paced 5x week [id number] ENRIQUE ODEN [facility] [address] [place] [address] 05/08/2022 10:45:37 05/15/2022 10:57:36 Essential hypertension [id number] I10 BP not controlled today. did take medication this morning. On lisinopril -HCTZ and amlodipine 10mg, TWO lisinopril -hcz. BPat home still elevated 140-150 systolic. Adding BB and sending to cardiology . check bp this week and f/u. starting GLP-1 for weight loss and CV improvemen t. Advised to check BP regularly with a goal of <140/90, if BP consistent ly >140/90, advised to contact clinicDisc usalexis acevedoAdvise d weight loss and diet is best way to control BPAdvised 30 minutes of exercise minimum dailyAdvis ed tobacco, alcohol, caffeine all increase BP Morbid obesity [id number] E66.01 BMI 41.4, 3 lb weightgain since last visit. . Patient not following healthy diet. States her mother and aunts are all big boned and she just won't be able to lose weight. She does agree to GLP. she is morbidly obese, pre-diabet ic and hypertensi ve on 3 medication regiment. weight loss will be beneficial . She denies contraindi cations to start such as pancreatit is and hx of thyroid cancer. - discussed how to inject GLP1, side effects, when to go to ER or contact office- encouraged healthy diet- increase water and stop juices- encouraged walking 30 min fast paced 5x week [id number] ENRIQUE ODEN [facility] [address] [place] [address] 06/09/2022 11:47:32 06/09/2022 12:17:01 Essential hypertension 54366837 I10 BP not controlled today. did take medication this morning. BP at home still elevated 140's systolic. increasing BB and reminded to call cardiology . check bp this week and f/u. Advised to check BP regularly with a goal of <140/90, if BP consistent ly >140/90, advised to contact clinicDisc ussed DASH dietAdvise d weight loss and diet is best way to control BPAdvised 30 minutes of exercise minimum dailyAdvis ed tobacco, alcohol, caffeine all increase BP Morbid obesity [id number] E66.01 BMI 41.7, 3 lb weight gain since last visit. . Patient not following healthy diet. could not tolerate GLP. she is morbidly obese, pre-diabet ic and hypertensi ve on 3 medication regiment. weight loss will be beneficial . - encouraged healthy diet- increase water and stop juices- encouraged walking 30 min fast paced 5x week Depressive disorder [id number] 9005 F32.A controlled . refill - advised counseling -Patient was educated on his prescribed medication s, rationale for medication s, dosing indication s, adverse reactions, black box warning, dosing indication s, SE (e.g., decreased libido, weight gain, gynecomast ia, and galactorrh ea) and the risks and benefits.- Call center with questions/ concerns. Go to ER or call 911 for crisis (e.g., suicidal behaviors, suicidal ideations, intent or plan emerge). Additional ly, patient has suicide hotline #.- f/u one month- call with questions Heart murmur [id number] R0 1.1 new murmur on exam with history of uncontroll ed htn. [id number] ENRIQUE ODEN [facility] [address] [place] [address] 07/07/2022 11:36:34 07/07/2022 12:25:34 Lumbago with sciatica [id number] M54.41 chronic low back pain with sciatic on right side > 20 years.has seen chiropract or and was told she has herniated disk on xray. - xray- PT- NSAID orn with caution due to high BP- rice Right inguinal hernia 23 [id number] K40.90 RIGHT INGUNAL HERNIA [id number] Alfonso Moeller MD [facility] [address] [place] [address] 07/16/2022 10:21:31 07/16/2022 15:27:16 Right inguinal hernia [id number] K40.90 patient with palpable herniation of contents through her lower abdominal wall. Unclear on exam 05/22 patient habits whether this is a femoral, inguinal, or low ventral hernia. Will need CT scan to delineate anatomy and properly plan the surgical approach. Will schedule for surgery after CT results obtained. [id number] ENRIQUE ODEN [facility] [address] [place] [address] 09/10/2022 11:29:39 09/10/2022 12:35:57 Female stress incontinence 67308685 N39.3 c/o of trouble making it to bathroomde clined PT at this timewill try farheen exercises and scheduling bathroom breaks.f/u Cough [id number] R05.9 cough mostly resolved after 6 days. Would like cough medication prn.pex: lungs are clear on exam. Right inguinal hernia 23 [id number] K40.90 she will call to schedule surgery [id number] ENRIQUE ODEN [facility] [address] [place] [address] 09/26/2022 15:45:21 09/26/2022 16:29:28 Acute urinary tract infection 273001358 N39.0 chronic cough, has cracking in LLL.start augmentin to cover for CAPER if worsens [id number] ENRIQUE ODEN [facility] [address] [place] [address] 02/02/2023 09:54:58 02/02/2023 11:52:12 Screening mammography 10689741 Z12.31 Adult [facility] th examination 715509539 Z00.00 Patient presents for physical today. BP elevated due to not taking BP medication this morning. States runs normal at home. - come by office this week for BP check- advised weight loss- discussed diet- discussed exercise Screening for malignant neoplasm of colon 440402858 Z12.11 has colonoscop y in [place] 2002agrees to cologrd Essential hypertension 69550143 I10 BP not controlled today. states she is only taking one pill for htn. Has f/u with cardiology 02/11/23. I will start losartan as lisinopril stopped due to cough. she denies cp, sob, palpitatio ns Advised to check BP regularly with a goal of <140/90, if BP consistent ly >140/90, advised to contact clinicDisc ussed DASH dietAdvise d weight loss and diet is best way to control BPAdvised 30 minutes of exercise minimum dailyAdvis ed tobacco, alcohol, caffeine all increase BP Morbid obesity 933100641 E66.01 BMI 41.3, 3 lb weight loss since last visit. . Patient not following healthy diet. could not tolerate GLP. she is morbidly obese, pre-diabet ic and hypertensi ve. she understand s following diet would be beneficial but has been unable to do so. - encouraged healthy diet- increase water and stop juices- encouraged walking 30 min fast paced 5x week [id number] Mi Tamez MA [facility] [address] [place] [address] 02/03/2023 08:41:33 02/03/2023 08:59:06 [id number] Lizbeth Quiles MA [facility] [address] [place] [address] 02/06/2023 08:49:35 02/06/2023 09:14:33 Administration of influenza vaccine [id number] Z23 [id number] ENRIQUE ODEN [facility] [address] [place] [address] 03/17/2023 10:06:55 03/17/2023 10:46:54 Gynecologic examination 62075686 Z01.419 62yo postmenopa usal HF presents for annual wwe. - pelvic examinatio ns completed today, unremarkab le -cervical cancer screening: last Pap NILM hpv - (2021), negative HPV+. (2019), colposcopy 09/11/20 showing HPV changes .obtained repeat pap today -referral for screening mammogram issued for routine breast cancer screening -Educated osteoporos is prevention including calcium rich diet, weight bearing exercise. continue vit D and calcium -RTC in 1yr Screening for malignant neoplasm of breast 082327066 Z12.31 normal 2021. Screening mammogram ordered, advised to schedule. Morbid obesity 584309480 E66.01 BMI 42.4. Patient not following healthy diet. States her mother and aunts are all big boned and she just won't be able to lose weight. - encouraged healthy diet- increase water and stop juices- encouraged walking 30 min fast paced 5x week Essential hypertension 86544641 I10 white coat hypertensi onnormal BP at home Advised to check BP regularly with a goal of <140/90, if BP consistent ly >140/90, advised to contact clinicDisc [facility] Manciavise isha weight loss and diet is best way to control BPAdvised 30 minutes of exercise minimum dailyAdvis ed tobacco, alcohol, caffeine all increase BP [id number] ENRIQUE ODEN [facility] [address] [place] [address] 08/03/2023 15:10:50 08/03/2023 16:03:57 Hallux valgus 173756309 M20.10 b/l acquired hallux valgus with bunioncasi ng shifting of other toes and pressure from third toe onto 4thwill send to podiatryad vised placing cotton buffer between toes and wearing wide box shoes Essential hypertension 95569717 I10 patient did not take BP medication today. She is advised her BP is high and to take it once home. Advised to check BP regularly with a goal of <140/90, if BP consistent ly >140/90, advised to contact clinicDisc isha vieira weight loss and diet is best way to control BPAdvised 30 minutes of exercise minimum dailyAdvis ed tobacco, alcohol, caffeine all increase BP Foot callus 279863592 L8 4 b/w 3rd and 4th [id number] ENRIQUE ODEN [facility] [address] [place] [address] 01/26/2024 09:02:40 01/26/2024 09:42:06 Adult health examination 188306771 Z00.00 - advised taking calcium with vitamin D daily- needs repeat pap- advised weight loss- discussed diet- discussed exercise Depressive disorder 7269 8912 F32.A controlled . refill - advised counseling -Patient was educated on his prescribed medication s, rationale for medication s, dosing indication s, adverse reactions, black box warning, dosing indication s, SE (e.g., decreased libido, weight gain, gynecomast ia, and galactorrh ea) and the risks and benefits.- Call center with questions/ concerns. Go to ER or call 911 for crisis (e.g., suicidal behaviors, suicidal ideations, intent or plan emerge). Additional ly, patient has suicide hotline #[phone].- call with questions Essential hypertension 72375045 I10 controlled Advised to check BP regularly with a goal of <140/90, if BP consistent ly >140/90, advised to contact clinicDisc usseisha SIEGEL dietAdvise d weight loss and diet is best way to control BPAdvised 30 minutes of exercise minimum dailyAdvis ed tobacco, alcohol, caffeine all increase BP Administra tion of influenza vaccine 57798095 Z23 agrees to flu shot Morbid obesity 581105834 E66.01 BMI 43.5. Patient not following healthy diet. States her mother and aunts are all big boned and she just won't be able to lose weight. - encouraged healthy diet- increase water and stop juices- encouraged walking 30 min fast paced 5x week [id number] Mi Tamez MA [facility] [address] [place] [address] 08/09/2024 09:45:48 08/09/2024 10:44:49 Essential hypertension 00738249 I10 controlled Advised to check BP regularly with a goal of <140/90, if BP consistent ly >140/90, advised to contact clinicDisc usseisha acevedoAdvise d weight loss and diet is best way to control BPAdvised 30 minutes of exercise minimum dailyAdvis ed tobacco, alcohol, caffeine all increase BP Pain of le ft knee joint [id number] 71888 M25.562 started decemeber in the morning felt liek she was sleeping on her elft side. did fall in march but had fallen in R side. water with salt helps her pain. Health Concerns Section Related Observation LastModified by Organization Detai ls LastModified Time None Recorded Concern Status LastModified by Organization Details LastModified Time None Recorded Advance Directives Directive N: Payers Encounter Date Sequence Insurance Name Policy Number Policy Calixto Covered Member ID Calixto Member ID Guarantor Name 02/06/2023 1 [facility] (MEDICAID HMO) [id number] Stella Condado [id number] Stella Condado 03/17/2023 1 [employer] (MEDICAID HMO) [id number] Stella Condado [id number] Stella Condado 08/03/2023 1 [employer] (MEDICAID HMO) [id number] Stella Condado [id number] Stella Condado 01/26/2024 1 [employer] (MEDICAID HMO) [id number] Stella Condado [id number] Stella Condado Notes Date Note Type Note Provider Name and Address Organization Details Recorded Time 03/17/2023 text/html 62 yo HM present s for IBCCP pap. Normal Pap on 03/21/20 with HPV positive x 2 years. colposcopy 2020 shows HPV changes. She denies bleeding, discharge, dysuria, dyspareunia, postcoital bleeding. pap: NILM, HPV- (2021) HPV + (2019)colpo: 2020 shows HPV changesmammogram: NORMAL 09/2021, [place], dueosteopenia: dexa shows osteopenia 2019. repeat age 64 and continue vitd/calcium ENRIQUE ODEN Attn: Accounting,[address] [place], [address], [facility] 03/17/2023 10:53:44 08/03/2023 text/html Stella presents for foot pain she is having left foot pain between 3rd and 4th digit. She has noticed her foot alignment have changed. 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 noticed a small callus on that third toe and it is irritating the 4th. open to seeing podiatry. ENRIQUE ODEN Attn: Accounting,[address] [place], [address], [facility] 08/03/2023 16:54:18 01/26/2024 text/html Stella presents for refills and labs dpression: controlled on sertaline. sleeping well and mood is improved. would like to continue. htn: controlled on medications. needs refills. would like flu shot today. she is having left foot pain between 3rd and 4th digit. She has noticed her foot alignment have changed. 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 noticed a small callus on that third toe and it is irritating the 4th. open to seeing podiatry. ENRIQUE ODEN Attn: [address]ing,[address] [place], [address], [place] [facility] 01/26/2024 09:51:31 OBGyn Episode No OBEpisode recorded.
== END 2024-08-09 10:35 | disposition home or self-care (01) ==
LOC: ANHLAB 10:36 → ANHIMG 10:37
PROVIDERS: PCP Physician Assistant; Visit Provider Physician Assistant
DX: M25.562 Pain in left knee (principal)
CPT/HCPCS: 73562